=== PATIENT | male | born 1960 ===

== ENCOUNTER 2018-08-21 21:28 | Emergency (ER) | payer MEDICAID, SELFPAY ==
[2018-08-21 21:28] VITALS: BMI 22.1
[2018-08-21 21:41] VITALS: RESP 18; TEMP 97.9
--- NOTE | 2018-08-21 22:13 | ED PDOC ---
HPI: General Adult Time Seen by Provider: 08/21/18 21:53 Chief Complaint (Nursing): Medical Clearance Chief Complaint (Provider): Withdraw Symptoms History Per: Patient History/Exam Limitations: no limitations Onset/Duration Of Symptoms: Hrs (x13) Current Symptoms Are (Timing): Still Present Additional Complaint(s): Ricardo Luis, a 58 year old male with no significant past medical history, present to the ED in police custody for withdraw symptoms. Patient states he shot heroin at 09:00 and began to feel nausea and shakiness. Patient currently denies nausea and vomiting. He states he has gone through withdraw in the past. chief development officer reports he has not seen patient vomit or shake since he has been in custody. No other complaints were noted. PCP: none provided Past Medical History Reviewed: Historical Data, Nursing Documentation, Vital Signs Vital Signs: Last Vital Signs Temp 97.9 F 08/21/18 21:37 Pulse 72 08/21/18 21:37 Resp 18 08/21/18 21:37 BP 165/90 H 08/21/18 21:37 Pulse Ox 99 08/21/18 21:37 - Medical History PMH: Emphysema - Family History Family History: States: Unknown Family Hx - Social History Drugs: Opiates (heroin) - Immunization History Hx Tetanus Toxoid Vaccination: No Hx Influenza Vaccination: No Hx Pneumococcal Vaccination: No - Home Medications Home Medications: Ambulatory Orders Medication Instructions Recorded Albuterol HFA [Ventolin HFA 90 2 puff IH Q6 #1 inhaler 12/26/17 mcg/actuation (8 g)] Prednisone [Deltasone] 3 tab PO DAILY #12 tablet 12/26/17 - Allergies Allergies/Adverse Reactions: Allergies Allergy/AdvReac Type Severity Reaction Status Date / Time No Known Allergies Allergy Verified 12/26/17 10:39 Review of Systems ROS Statement: Except As Marked, All Systems Reviewed And Found Negative Gastrointestinal: Negative for: Nausea, Vomiting Physical Exam - Reviewed Nursing Documentation Reviewed: Yes Vital Signs Reviewed: Yes - Physical Exam Appears: Positive for: No Acute Distress (On entry to ED patient was resting comfortably without shakes or signs of discomfort. During evaluation patient was seen shaking legs which stopped when he spoke). Negative for: Uncomfortable Skin: Positive for: Warm, Dry ENT: Positive for: Other (mucous membrane moist) Cardiovascular/Chest: Positive for: Regular Rate, Rhythm. Negative for: Murmur Respiratory: Positive for: Wheezing (faint) Gastrointestinal/Abdominal: Positive for: Soft. Negative for: Tenderness Extremity: Positive for: Other (hands are not tremoring. Extremities show no signs of infection and there are several well healed puncture wounds on the left antecubital fossa) - ECG O2 Sat by Pulse Oximetry: 99 (RA) Pulse Ox Interpretation: Normal Medical Decision Making Medical Decision Making: Time: 2157 Initial plan: Patient reporting symptoms of withdraw with stable vital and unremarkable physical exam --Chest x-ray for wheeze --Tylenol and promethazine for discomfort --revaluation ----- Scribe Attestation: Documented by Milo Wong, acting as a scribe for Radha Reeves MD. Provider Scribe Attestation: All medical record entries made by the Scribe were at my direction and personally dictated by me. I have reviewed the chart and agree that the record accurately reflects my personal performance of the history, physical exam, medical decision making, and the department course for this patient. I have also personally directed, reviewed, and agree with the discharge instructions and disposition. 22:30 CXR unremarkable. Pt with improved symptoms. Pt currently waiting evaluation by crisis/psychiatry prior to discharge. 00:00 Pt to be signed out to Dr. Daniels with probable discharge to police custody. Vitals remain stable and pt is comfortable. Disposition - Clinical Impression Clinical Impression: Withdrawal from opioids - Disposition Disposition Time: 22:25 Condition: IMPROVED Additional Instructions: You are medically and psychiatrically cleared with no need for further/emergency medical or psychiatric treatment at this time. Seek treatment for drug addiction. Follow up with primary medical doctor. Return to the emergency department if symptoms worsen or if new symptoms develop. Instructions: General (DC) Forms: [employer] (Mosotho) Print Language: SOUTH AFRICAN
--- NOTE | 2018-08-22 00:11 | ED PDOC ---
- ECG O2 Sat by Pulse Oximetry: 99 (RA) Medical Decision Making Medical Decision Making: Time: 00:00 --Patient is endorsed to provider by Dr. Reeves, pending crisis evaluation. Time: 36 --Upon crisis evaluation, patient is medically and psychologically cleared for incarceration and requires no further treatment in the ED at this time. Patient will be discharged to law enforcement. Counseling was provided and all questions were answered regarding diagnosis. There is agreement to discharge plan. Return if symptoms persist or worsen. Clinical Impression: Withdrawal from opioids Scribe Attestation: Documented by Martha Nieto, acting as a scribe for Marco A Daniels MD. Provider Scribe Attestation: All medical record entries made by the Scribe were at my direction and personally dictated by me. I have reviewed the chart and agree that the record accurately reflects my personal performance of the history, physical exam, medical decision making, and the department course for this patient. I have also personally directed, reviewed, and agree with the discharge instructions and disposition. Disposition - Clinical Impression Clinical Impression: Withdrawal from opioids - POA Present On Arrival: None - Disposition Disposition: Discharged/Transfer to Law Enforcement Disposition Time: 00:37 Condition: IMPROVED Additional Instructions: You are medically and psychiatrically cleared with no need for further/emergency medical or psychiatric treatment at this time. Seek treatment for drug addiction. Follow up with primary medical doctor. Return to the emergency department if symptoms worsen or if new symptoms develop. Instructions: General (DC) Forms: CX (K[employer]arwanda) Print Language: THAI
[2018-08-22 03:00] VITALS: BP 160/91; PULSE 76; O2SAT 98
--- NOTE | 2018-08-22 16:53 | RAD ---
Date of service: 08/21/2018 HISTORY: possible admission COMPARISON: Chest radiographs 03/31/2013. FINDINGS: LUNGS: No active pulmonary disease. PLEURA: No significant pleural effusion identified, no pneumothorax apparent. CARDIOVASCULAR: Calcific atherosclerotic changes are seen related to the thoracic aorta. Normal cardiac size. No pulmonary vascular congestion. OSSEOUS STRUCTURES: No significant abnormalities. VISUALIZED UPPER ABDOMEN: Normal. OTHER FINDINGS: None. IMPRESSION: No interval acute cardiopulmonary disease appreciated.
== END 2018-08-22 01:05 ==
LOC: H.ER 21:28
DX: F11.23 Opioid dependence with withdrawal (principal); J43.9 Emphysema, unspecified
CPT/HCPCS: 71045; 99284; Q0169